=== PATIENT | male | born 1985 | race African-American/Black ===

== ENCOUNTER 2019-01-31 08:01 | Emergency (ER) | payer MEDICAID ==
[~2019-01-31] VITALS: Ht 182.9 cm; Wt 85.0 kg
[2019-01-31] MEDS ORDERED: BACITRACIN 15GM TUBE TOP SCH (10:15)
[2019-01-31] MEDS ORDERED: BACITRACIN ZINC OINT UDPKT TOP ONE (10:15)
[2019-01-31 13:50] VITALS: BP 118/64
== END 2019-01-31 13:55 | disposition home or self-care (01) ==
LOC: ER 08:01
DX: S93.402A Sprain of unspecified ligament of left ankle, initial encounter (principal); L03.116 Cellulitis of left lower limb; S90.512A Abrasion, left ankle, initial encounter; Z90.49 Acquired absence of other specified parts of digestive tract; W22.01XA Walked into wall, initial encounter; Y93.89 Activity, other specified; Y92.018 Other place in single-family (private) house as the place of occurrence of the external cause
CPT/HCPCS: 73610; 73630; 82962; 99284

== ENCOUNTER 2019-10-25 12:20 | Emergency (ER) | payer MEDICAID ==
[~2019-10-25] VITALS: Ht 188 cm; Wt 100.0 kg
[2019-10-25] MEDS ORDERED: ONDANSETRON HCL 4MG/2ML INJ IV STA (13:16)
[2019-10-25] MEDS ORDERED: SODIUM CHLORIDE 0.9% 1,000 ML IV ONE (13:16)
[2019-10-25] MEDS ORDERED: MORPHINE SULFATE 4 MG/ML CPJ (NOT FOR IM USE) IV STA (13:16)
[2019-10-25] MEDS ORDERED: ETOMIDATE 2MG/ML 10ML VIAL IV ONE (14:00)
[2019-10-25 15:42] VITALS: BP 128/76
== END 2019-10-25 15:43 | disposition home or self-care (01) ==
LOC: ER 12:20
DX: S43.005A Unspecified dislocation of left shoulder joint, initial encounter (principal); Z90.49 Acquired absence of other specified parts of digestive tract; Z98.890 Other specified postprocedural states; X58.XXXA Exposure to other specified factors, initial encounter; Y93.89 Activity, other specified; Y92.89 Other specified places as the place of occurrence of the external cause; Y99.8 Other external cause status
CPT/HCPCS: 23650; 73030; 96374; 96375; 99152; 99285; J2270; J2405; J3490; J7030; L1830

== ENCOUNTER 2019-10-29 13:18 | Emergency (ER) | payer MEDICAID ==
[~2019-10-29] VITALS: Ht 182.9 cm; Wt 97.5 kg
[2019-10-29 13:20] VITALS: BP 154/80
[2019-10-29] MEDS ORDERED: BACITRACIN ZINC OINT UDPKT TOP ONE (14:00)
[2019-10-29] MEDS ORDERED: TETANUS, DIPHTHERIA, PERTUSSIS VAC/PF 0.5ML (>7YR OLD) IM ONE (14:00)
== END 2019-10-29 14:36 | disposition home or self-care (01) ==
LOC: ER 13:18
DX: S81.851A Open bite, right lower leg, initial encounter (principal); Z90.49 Acquired absence of other specified parts of digestive tract; W54.0XXA Bitten by dog, initial encounter; Y93.89 Activity, other specified; Y92.018 Other place in single-family (private) house as the place of occurrence of the external cause
CPT/HCPCS: 90471; 90715; 99283

== ENCOUNTER 2019-11-01 07:35 | Emergency (ER) | payer MEDICAID ==
[~2019-11-01] VITALS: Ht 188 cm; Wt 95.0 kg
[2019-11-01 07:38] VITALS: BP 132/64
== END 2019-11-01 08:20 | disposition home or self-care (01) ==
LOC: ER 07:35
DX: M25.512 Pain in left shoulder (principal); Z90.49 Acquired absence of other specified parts of digestive tract; Z98.890 Other specified postprocedural states; Z76.0 Encounter for issue of repeat prescription
CPT/HCPCS: 99283

== ENCOUNTER 2020-04-10 10:47 | Emergency (ER) | payer MEDICAID, OTHER ==
[~2020-04-10] VITALS: Ht 188 cm; Wt 91.0 kg
[2020-04-10 10:50] VITALS: BP 129/79
[2020-04-10] MEDS ORDERED: ACETAMINOPHEN 325MG TABLET PO ONE (11:45)
== END 2020-04-10 12:54 | disposition home or self-care (01) ==
LOC: ER 10:47
DX: S43.005A Unspecified dislocation of left shoulder joint, initial encounter (principal); X58.XXXA Exposure to other specified factors, initial encounter; Y93.89 Activity, other specified; Y92.89 Other specified places as the place of occurrence of the external cause; Y99.8 Other external cause status
CPT/HCPCS: 73030; 99283; L3670

== ENCOUNTER 2021-08-15 23:31 | Emergency (ER) | payer MEDICAID ==
[~2021-08-15] VITALS: Ht 185.4 cm; Wt 103.0 kg
[2021-08-16 00:49] LABS: BASOPHILS % 0.6 % (0.0-2.0); HEMATOCRIT. 41.6 % (42.0-52.0); HEMOGLOBIN. 13.8 g/dL (14.0-18.0); MEAN CORPUSCULAR HEMOGLOBIN 28.2 pg (28.0-32.0); MEAN PLATELET VOLUME 7.9 fl (7.4-10.4); MONOCYTES % 6.8 % (2.0-8.0); NEUTROPHILS % 55.6 % (40.0-76.0); PLATELET 303 x1000/uL (130-400); RED CELL DISTRIBUTION WIDTH 16.9 % (11.6-14.6)
[2021-08-16 00:59] LABS: ETHANOL BLOOD < 10 mg/dL
[2021-08-16 01:00] LABS: CLARITY URINE CLEAR (CLEAR); COLOR URINE YELLOW (YELLOW); KETONES URINE TRACE (NEGATIVE); LEUKOCYTE ESTERASE URINE NEGATIVE (NEGATIVE); NITRITE URINE NEGATIVE (NEGATIVE); OCCULT BLOOD URINE NEGATIVE (NEGATIVE); PROTEIN URINE NEGATIVE (NEGATIVE); SPECIFIC GRAVITY URINE 1.028 (1.005-1.030)
[2021-08-16 01:02] LABS: CHLORIDE 103 mEq/L (98-107)
[2021-08-16 01:15] LABS: *AMPHETAMINES SCREEN URINE PRESUMTIVE POSITIVE (NEGATIVE); *BARBITURATES SCREEN URINE NEGATIVE (NEGATIVE); *BENZODIAZEPINES SCREEN URINE NEGATIVE (NEGATIVE); *COCAINE SCREEN URINE NEGATIVE (NEGATIVE); CANNABINOID URINE SCREEN PRESUMTIVE POSITIVE (NEGATIVE); PHENCYCLIDINE URINE SCREEN PRESUMTIVE POSITIVE (NEGATIVE)
[2021-08-16 01:16] LABS: METHADONE URINE SCREEN NEGATIVE (NEGATIVE); OPIATES URINE SCREEN PRESUMTIVE POSITIVE (NEGATIVE)
[2021-08-16] MEDS ORDERED: IBUPROFEN 600MG TABLET PO STA (01:33)
[2021-08-16] MEDS: DIVALPROEX SODIUM 500MG DR TABLET PO SCH ×2 (10:23→21:52)
[2021-08-16] MEDS ORDERED: ACETAMINOPHEN 325MG TABLET PO ONE (14:00)
[2021-08-16] MEDS: QUETIAPINE FUMARATE 50MG TABLET PO SCH (21:53)
[2021-08-17] MEDS: DIVALPROEX SODIUM 500MG DR TABLET PO SCH ×2 (08:43→21:00)
[2021-08-17] MEDS: QUETIAPINE FUMARATE 50MG TABLET PO SCH (21:00)
[2021-08-18 07:15] VITALS: BP 110/61
== END 2021-08-18 07:41 ==
LOC: ER 23:31
DX: R45.851 Suicidal ideations (principal); F19.129 Other psychoactive substance abuse with intoxication, unspecified; F31.9 Bipolar disorder, unspecified; F20.9 Schizophrenia, unspecified; M25.562 Pain in left knee; Z86.16 Personal history of COVID-19; Z98.890 Other specified postprocedural states
CPT/HCPCS: 36415; 73562; 99285